=== PATIENT | female | born 1990 | race Caucasian/White ===

== ENCOUNTER 2021-06-23 11:58 | Emergency (ER) | payer BC, SELFPAY ==
--- NOTE | ~2021-06-23 | XR_ITS ---
EXAMINATION: XR shoulder RT min 2V EXAM DATE: 06/23/2021 12:27 INDICATION: backwards FALL 1 day ago; pain post Rt shoulder with limited range of motion. TECHNIQUE: The following right shoulder projections obtained: frontal projection with internal rotati on, frontal projection with external rotation, Grashey, and scapular Y view (4+ views). There is no prior study for comparison. FINDINGS: No evidence of right shoulder rotator cuff calcific tendinosis. Unremarkable right glenoh umeral and acromioclavicular joints. There are no acute fractures or dislocations identified. There is no subcutaneous gas. The soft tissue is unremarkable. There are no radiopaque foreign bodies. IMPRESSION: 1. Right shoulder exam without acute osseous findings. Reviewed, dictated and finalized at location A. [facility] [employer]
[2021-06-23 12:08] VITALS: BP 136/84; PULSE 74; RESP 16; TEMP 36.5; O2SAT 100
--- NOTE | 2021-06-23 12:08 | ED.UPPEXIN ---
HPI - Extremity Injury (Upper) General Chief Complaint: Extremity Injury, Upper Stated Complaint: Right Shoulder Pain Time Seen by Provider: 06/23/21 12:08 Source: patient and RN notes reviewed Mode of arrival: ambulatory Limitations: no limitations History of Present Illness HPI narrative: Sudha is a 31 year old female patient who states she slid while at work yesterday. Patient states she landed with both hands flat out behind her back and landed on both hands. Patient states she was fine immediately after the injury. However she states throughout the evening she started having pain on her right shoulder. Patient states she is unable to elevate her arm or move it out to the side. Patient has not used any [id number]-crziica measures. MD complaint: injury to: right and shoulder Related Data Home Medications Medication Instructions Recorded Confirmed escitalopram oxalate 10 mg tablet 15 mg PO DAILY tablet 04/26/21 06/23/21 Allergies Allergy/AdvReac Type Severity Reaction Status Date / Time No Known Drug Allergies Allergy Unknown none Verified 06/23/21 12:10 mushroom Allergy Diarrhea Verified 06/23/21 12:10 peanut butter AdvReac Mild Nausea Uncoded 04/26/21 14:37 Review of Systems Review of Systems: CONSTITUTIONAL: Denies body aches, fever, chills, or sweats. EYES: Denies visual changes, redness, or discharge. ENT: Denies rhinorrhea, congestion, sore throat, or otalgia. CARDIOVASCULAR: Denies chest pain, palpitations, or edema. RESPIRATORY: Denies cough or dyspnea. GASTROINTESTINAL: Denies abdominal pain, nausea, vomiting, or diarrhea. GENITOURINARY: Denies dysuria or hematuria. SKIN: Denies rash, itching, or wounds. MUSCULOSKELETAL: Denies back pain,or myalgia.+ right shoulder pain NEUROLOGIC: Denies headache, numbness, tingling, or weakness. PSYCH: Denies depression or anxiety. All systems reviewed & are unremarkable except as noted in HPI and below PMFSH Family History Family History Father Hypertension Family history of elevated blood lipids Family history of diabetes mellitus in first degree relative Family history of coronary artery disease Social History Social History Smoking status: Never smoker Second hand tobacco smoke exposure: No Alcohol intake: never Substance use: never Substance use type: does not use Gender identity (if verbalized by the patient): Female Sexual Orientation (if Verbalized by the Patient): Straight or Heterosexual Comments At time of signature, I have reviewed and agree with nursing past medical, surgical, social and family history unless otherwise noted. Please see nursing chart for further information. There is no relevant family history pertinent to the presenting complaint Exam Narrative: GENERAL: Well-appearing, well-nourished, and in no acute distress. HEAD: Normocephalic, atraumatic. EYES: EOMI. No redness or drainage. Conjunctivae normal. ENT: Mucous membranes pink and moist. Nares clear. No rhinorrhea. NECK: Normal AROM. Supple. No lymphadenopathy. CHEST: No respiratory distress. MUSCULOSKELETAL: No bony tenderness. EXTREMITIES: limited ROM right shoulder, pain with extension and flexion of arm, rao with palpatio over acromion, patient unable to abduct, adduct or forward flex secondary to pain. Forward flexion is limited to 45Degrees. shoulder shrug is normal. distal sensation and movement intact right arm. SKIN: Warm, dry, no rash. Capillary refill normal. Normal skin turgor. NEURO: No focal deficits. Alert and oriented x3. Gait steady. PSYCH: Normal affect. No signs of depression or anxiety. Course Vital Signs Vital signs: Vital Signs Temperature 36.5 C 06/23/21 12:08 Pulse Rate 74 06/23/21 12:08 Respiratory Rate 16 06/23/21 12:08 Blood Pressure 136/84 06/23/21 12:08 Pulse Oximetry 100 06/23/21 12:08
[2021-06-23 12:11] VITALS: BP 136/84; PULSE 74; RESP 16; TEMP 36.5; O2SAT 100
== END 2021-06-23 12:55 | disposition home or self-care (01) ==
PROVIDERS: Emergency Provider Nurse Practitioner Family; PCP Family Medicine
DX: S46.911A Strain of unspecified muscle, fascia and tendon at shoulder and upper arm level, right arm, initial encounter (principal); W01.0XXA Fall on same level from slipping, tripping and stumbling without subsequent striking against object, initial encounter; Y99.0 Civilian activity done for income or pay
CPT/HCPCS: 73030; 99213; A4565; G0463

== ENCOUNTER 2025-04-25 07:18 | Outpatient (CLI) | payer BC, SELFPAY ==
--- NOTE | ~2025-04-25 | MR_ITS ---
EXAMINATION: MR_LE2+RTWO_MR, MR_LE2+LTWO_MR DATE: 04/25/2025 08:53 INDICATION: Left and right foot talar tarsal instability TECHNIQUE: 1. Magnetic resonance imaging (MRI) of the left foot and ankle was performed without intravenous contrast. Sequences of the ankle, mid and hindfoot included axial, sagittal and coronal PD-weighted FSE and PD-weighted FS FSE and sequences of the mid and forefoot included, axial PD-weighted FSE and PD-weighted FS FSE, sagittal T1-weighted FSE and fluid sensitive FSE STIR T1-weighted FSE and PD- weighted FS FSE. 2. MRI of the right foot and ankle was performed without intravenous contrast. Sequences of the ankle, mid and hindfoot included axial, sagittal and coronal PD-weighted FSE and PD-weighted FS FSE and sequences of the mid and forefoot included, axial PD-weighted FSE and PD-weighted FS FSE, sagittal T1-weighted FSE and fluid sensitive FSE STIR T1-weighted FSE and PD-weighted FS FSE. COMPARISON: None. FINDINGS: Right foot and ankle: Medial ankle ligaments: Deep and superficial deltoid ligaments as well as the spring ligament are normal. Lateral ankle ligaments: The anterior and posterior inferior tibiofibular ligaments are normal. The calcaneofibular and posterior talofibular ligaments are normal. There is mild thickening and mild increased signal of the anterior talofibular ligament without surrounding edema to suggest acute injury consistent with mild scarring related to chronic sprain. Tendons: Achilles tendon is normal. Absent retromalleolar groove with normal peroneus longus and brevis tendons pass along the flat to slightly convex posterolateral margin of the lateral malleolus. The tibialis anterior and extensor hallucis longus and extensor digitorum longus tendons are normal. The tibialis posterior, flexor digitorum longus and flexor hallucis longus tendons are normal. Plantar fascia: Plantar aponeurosis is normal. Bones/other: There appears be pes planus and hindfoot valgus although this would be better assessed with weightbearing radiographs. There is a bipartite tibial sesamoid at the first metatarsophalangeal joint. There is loss of T1 marrow fat signal at both the proximal distal moieties of the bipartite sesamoid which could be seen with osteonecrosis. Marrow signal is otherwise normal with no fracture or pathologic marrow replacing process. Joint spaces appear normal throughout. Lisfranc ligament complex as well as the collateral ligament complex at the metatarsophalangeal and interphalangeal joints are normal. Intrinsic musculature of the foot is normal. Fluid: Physiologic amount fluid in the joint spaces. There is a small bursal fluid collection underlying the plantar aspect of the tibial sesamoid first metatarsophalangeal joint. No tenosynovitis or other abnormal fluid collections. Left foot and ankle: Medial ankle ligaments: Deep and superficial deltoid ligaments as well as the spring ligament are normal. Lateral ankle ligaments: The anterior and posterior inferior tibiofibular ligaments are normal. The anterior talofibular, calcaneofibular and posterior talofibular ligaments are normal. Tendons: Achilles tendon is normal. Absent retromalleolar groove with normal peroneus longus and brevis tendons pass along the flat to slightly convex posterolateral margin of the lateral malleolus. The tibialis anterior and extensor hallucis longus and extensor digitorum longus tendons are normal. The tibialis posterior, flexor digitorum longus and flexor hallucis longus tendons are normal. Plantar fascia: Plantar aponeurosis is normal. Bones/other: There appears be pes planus and hindfoot valgus although this would be better assessed with weightbearing radiographs. There is marrow edema of a bipartite tibial sesamoid at the first metatarsophalangeal joint with mild surrounding soft tissue edema. Marrow signal is otherwise normal with no fracture or pathologic marrow replacing process. Joint spaces appear normal throughout. Lisfranc ligament complex as well as the collateral ligament complex at the metatarsophalangeal and interphalangeal joints are normal. Intrinsic musculature of the foot is normal. Fluid: Physiologic amount fluid in the joint spaces. No tenosynovitis or other abnormal fluid collections. IMPRESSION: 1. Suggestion of bilateral pes planus and hindfoot valgus more prominent on the left. Could consider standing radiographs of the feet for confirmation. 2. Marrow edema at a bipartite tibial sesamoid at the left first metatarsophalangeal joint with mild surrounding soft tissue edema consistent with sesamoiditis. 3. 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 4. Mild scarring consistent with chronic sprain of the right anterior talofibular ligament. Reviewed, dictated and finalized at location A. IMPRESSION: 1. Suggestion of bilateral pes planus and hindfoot valgus more prominent on the left. Could consider standing radiographs of the feet for confirmation. 2. Marrow edema at a bipartite tibial sesamoid at the left first metatarsophala ngeal joint with mild surrounding soft tissue edema consistent with sesamoiditi s. 3. 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 4. Mild scarring consistent with chronic sprain of the right anterior talofibul ar ligament.
== END 2025-04-25 07:19 | disposition home or self-care (01) ==
PROVIDERS: PCP Family Medicine; Visit Provider Podiatrist Foot & Ankle Surgery
DX: M24.474 Recurrent dislocation, right foot (principal); M24.475 Recurrent dislocation, left foot; M20.11 Hallux valgus (acquired), right foot; M20.12 Hallux valgus (acquired), left foot
CPT/HCPCS: 73718